=== PATIENT | male | born 2000 | race Caucasian/White ===

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

== ENCOUNTER → 2021-08-05 18:41 | Outpatient (CLI) | payer OTHER, SELFPAY ==
[2021-08-05 20:56] LABS: Urine N gonorrhoeae NOT DETECTED
[2021-08-05 21:29] LABS: Urine Chlamydia NOT DETECTED
== END ==
PROVIDERS: Visit Provider Physician Assistant
DX: R30.0 Dysuria (principal)
CPT/HCPCS: 87086; 87491; 87591

== ENCOUNTER 2021-08-06 23:20 | Emergency (ER) | payer OTHER, SELFPAY ==
[2021-08-06 23:27] VITALS: BP 143/89; PULSE 112; RESP 16; TEMP 36.9; O2SAT 99; BMI 21.9
--- NOTE | 2021-08-06 23:39 | ED_ITS ---
HPI - General Adult General Chief complaint: Urogenital-Male Stated complaint: chest, back, and abdominal pain, nausea Time Seen by Provider: 08/06/21 23:21 Source: patient Mode of arrival: Ambulatory History of Present Illness HPI narrative: 21-year-ol gentleman with a history of ADD currently on dextroamphetamine b.i.d. presents with an interesting constellation of symptoms spine getting worse over the past 2 days. Initial symptoms included urethral burning, groin pain, increasing frequency and mild left back pain. He does not describe specific prostate pain. Was seen in the walk-in clinic diagnosed with a urinary tract infection but told that they wanted to wait for the urine test prior to treating with antibiotics. He also had chlamydia test that is negative. He describes no penile discharge. Today he was noticing pelvic floor cramping and pain and some difficulty voiding. An hour prior to arrival he noted some chest pain shortness of breath mild nausea and felt that his heart was beating irregularly and faster than would be expected for a resting heart rate. He also notes random weird musculoskeletal pains intermittently all day. He describes no fevers or chills, no nausea vomiting or diarrhea. No headaches. Related Data Home Medications Medication Instructions Recorded Confirmed dextroamphetamine-amphetamine ER 20 mg PO DAILY 08/05/21 08/05/21 20 mg 24hr capsule,extend release (Adderall XR) Previous Rx's Medication Instructions Recorded albuterol sulfate 90 mcg/actuation 2 puff INHALATION Q4-6H PRN #8 gram 09/06/19 aerosol inhaler inhalational spacing device #1 each 09/06/19 (Flexichamber) Allergies Allergy/AdvReac Type Severity Reaction Status Date / Time No Known Drug Allergies Allergy Verified 08/05/21 18:19 Review of Systems Review of Systems Narrative: Remainder of complete review of systems is otherwise unremarkable except for that included in the HPI. Patient History Social History Smoking Status: Current some day smoker Smoking Status: Current some day smoker Substance Use Type: does not use Exam Narrative Exam Narrative: General: Healthy appearing, in no acute distress. Able to give a complete and coherent history. Well-nourished well-developed HEENT: Moist mucous membranes, normal sclera with reactive pupils, Neck: No JVD, supple Respiratory: Lungs are clear to auscultation, no wheezing no rales no rhonchi. Full and symmetrical air movement Cardiac: Regular rate and rhythm no murmurs no bruits Abdomen: Soft, nontender, good bowel tones, no flank pain Skin: Warm and dry, no rashes Neurologic: Grossly neurologically intact with no obvious asymmetries or abnormalities Extremities: No trauma, well perfused Psych: Cooperative, appropriate insight and affect Genitals: Normal external genitalia. No inguinal adenopathy. No testicular tenderness or fullness. Some minor tenderness at the base of the penis more associated with his urethra without significant perineal body tenderness. Prostate exam was done in the walk-in clinic and was described as normal and is not repeated today. Initial Vital Signs Initial Vital Signs: Vital Signs Temperature 98.5 F 08/06/21 23:27 Pulse Rate 112 H 08/06/21 23:27 Respiratory Rate 16 08/06/21 23:27 Blood Pressure 143/89 H 08/06/21 23:27 Pulse Oximetry 99 08/06/21 23:27 Course Orders Ordered: ED Orders 08/06/21 23:25 Complete Blood Count AUTO DIFF Stat Comprehensive Metabolic Panel Stat 08/06/21 23:43 COVID19 -Nasal swab/Pre-Proc Stat 08/07/21 01:15 Urinalysis and Microscopic Stat Discontinued Medications Sodium Chloride (Normal Saline 0.9%) 1,000 mls @ 1,000 mls/hr IV BOLUS ONE Stop: 08/07/21 00:48 Last Infusion: 08/07/21 00:58 Dose: 0 mls/hr Documented by: Admin: 08/07/21 00:05 Dose: 1,000 mls/hr Documented by: AIDA Ketorolac Tromethamine (Ketorolac 30 Mg/Ml Vial) 15 mg IV NOW ONE Stop: 08/06/21 23:50 Last Admin: 08/07/21 00:05 Dose: 15 mg Documented by: AIDA Vital Signs Vital signs: Vital Signs - 8 hr 08/06/21 23:27 08/07/21 00:59 08/07/21 01:00 Temperature 98.5 F Pulse Rate 112 H 71 73 Respiratory Rate 16 20 20 Blood Pressure 143/89 H 120/71 Pulse Oximetry 99 100 100 08/07/21 01:30 Temperature Pulse Rate 68 Respiratory Rate 16 Blood Pressure 103/65 Pulse Oximetry 100 Medical Decision Making Lab Data Result diagrams: 08/06/21 23:25 08/06/21 23:25 Labs: Lab Results 08/06/21 08/06/21 08/06/21 Range/Units 23:25 23:25 23:43 WBC 10.0 (4.5-11.0) X10^3/uL RBC 5.27 (4.5-5.9) X10^6/uL Hgb 16.0 (13.5-17.5) g/dL Hct 46.9 (41-53) % MCV 89.1 (80-100) fL MCH 30.4 (26-34) PG MCHC 34.1 (30-36) % RDW 13.4 (11.6-14.8) % Plt Count 227 (150-400) X10^3/uL Neut % (Auto) 45.9 L (50-75) % Lymph % (Auto) 44.2 H (25-40) % [place] % (Auto) 7.5 (3-14) % Eos % (Auto) 1.9 L (2-4) % Baso % (Auto) 0.5 (0-2) % Neut # (Auto) 4600 (6698-9489) /uL Lymph # (Auto) 4400 (2690-3349) /uL [place] # (Auto) 800 (0-900) /uL Eos # (Auto) 200 (0-450) /uL Baso # (Auto) 0 (0-100) /uL Sodium 142 (137-145) mmol/L Potassium 3.1 L (3.4-5.1) mmol/L Chloride 105 (98-107) mmol/L Carbon Dioxide 28 (22-32) mmol/L BUN 13 (9-20) mg/dL Creatinine 0.89 (0.66-1.25) mg/dL Estimated GFR > 60.0 (>60) mL/min BUN/Creatinine Ratio 14.6 (6-22) Glucose 113 H (70-100) mg/dL Calcium 9.7 (8.4-10.2) mg/dL Total Bilirubin 1.3 (0.2-1.3) mg/dL AST 21 (17-59) IU/L ALT 16 (<50) IU/L Alkaline Phosphatase 38 (38-126) U/L Total Protein 7.8 (6.3-8.2) g/dL Albumin 4.8 (3.5-5.0) g/dL Globulin 3.0 (1.7-4.1) g/dL Albumin/Globulin Ratio 1.6 (1.0-2.8) Urine Color Urine Appearance Urine pH (4.5-8.0) Ur Specific [place] (1.000-1.035) Urine Protein (Negative) Urine Glucose (UA) (Negative) g/dL Urine Ketones (NEGATIVE) Urine Occult Blood (Negative) Urine Nitrate (Negative) Urine Bilirubin (NEGATIVE) Urine Urobilinogen (0.2) E.U./dL Ur Leukocyte Esterase (NEGATIVE) Urine RBC (0-5/HPF) Urine WBC (0-5/HPF) Urine Bacteria (None) Ur Culture Indicated? Micro UA Comment SARS-CoV-2 (PCR) Negative (Negative) 08/07/21 Range/Units 01:15 WBC (4.5-11.0) X10^3/uL RBC (4.5-5.9) X10^6/uL Hgb (13.5-17.5) g/dL Hct (41-53) % MCV (80-100) fL MCH (26-34) PG MCHC (30-36) % RDW (11.6-14.8) % Plt Count (150-400) X10^3/uL Neut % (Auto) (50-75) % Lymph % (Auto) (25-40) % [place] % (Auto) (3-14) % Eos % (Auto) (2-4) % Baso % (Auto) (0-2) % Neut # (Auto) (0361-5345) /uL Lymph # (Auto) (3174-9059) /uL [place] # (Auto) (0-900) /uL Eos # (Auto) (0-450) /uL Baso # (Auto) (0-100) /uL Sodium (137-145) mmol/L Potassium (3.4-5.1) mmol/L Chloride (98-107) mmol/L Carbon Dioxide (22-32) mmol/L BUN (9-20) mg/dL Creatinine (0.66-1.25) mg/dL Estimated GFR (>60) mL/min BUN/Creatinine Ratio (6-22) Glucose (70-100) mg/dL Calcium (8.4-10.2) mg/dL Total Bilirubin (0.2-1.3) mg/dL AST (17-59) IU/L ALT (<50) IU/L Alkaline Phosphatase (38-126) U/L Total Protein (6.3-8.2) g/dL Albumin (3.5-5.0) g/dL Globulin (1.7-4.1) g/dL Albumin/Globulin Ratio (1.0-2.8) Urine Color Yellow Urine Appearance Clear Urine pH 6.0 (4.5-8.0) Ur Specific [place] 1.010 (1.000-1.035) Urine Protein Negative (Negative) Urine Glucose (UA) Negative (Negative) g/dL Urine Ketones Negative (NEGATIVE) Urine Occult Blood Negative (Negative) Urine Nitrate Negative (Negative) Urine Bilirubin Negative (NEGATIVE) Urine Urobilinogen 0.2 (0.2) E.U./dL Ur Leukocyte Esterase Negative (NEGATIVE) Urine RBC None seen (0-5/HPF) Urine WBC None seen (0-5/HPF) Urine Bacteria None seen (None) Ur Culture Indicated? Cult not indicated Micro UA Comment Microscopic normal SARS-CoV-2 (PCR) (Negative) Urine Dip Bedside Urine Glucose Negative Bedside Urine Bilirubin - Negative Bedside Urine Ketone - Negative Urine Specific [place] 1.015 Bedside Urine Occult Blood - Negative Bedside Urine pH 6.0 Bedside Urine Protein - Negative Bedside Urine Nitrite - Negative Bedside Urine Leukocytes - Negative Esterase Point of care testing: Urine Dip Bedside Urine Glucose Negative Bedside Urine Bilirubin - Negative Bedside Urine Ketone - Negative Urine Specific [place] 1.015 Bedside Urine Occult Blood - Negative Bedside Urine pH 6.0 Bedside Urine Protein - Negative Bedside Urine Nitrite - Negative Bedside Urine Leukocytes - Negative Esterase [facility] Narrative Medical decision making narrative: 21-year-old otherwise healthy young man comes in complaining of pelvic floor spasm, dysuria, urinary frequency and pain in the bottom of his feet also associated with pelvic floor spasm this evening he noted significant pain in his chest. Workup today was entirely unremarkable. I suspect that the chest pain is more related to anxiety or musculoskeletal issues than any significant pathology. No evidence of pneumonia, pneumothorax, acute coronary syndrome, gastritis. With pelvic pain the differential needs to be widened a bit as his urinalysis is completely normal, urine from yesterday is showing no growth on the preliminary culture and gonorrhea and chlamydia testing done yesterday are equally normal. Possibility of pudendal nerve injury, interstitial cystitis, perhaps some type of low spinal cord abnormality are all entertained but certainly seem far less likely in this otherwise healthy 21-year-old male. Had a long discussion regarding the negative findings today possibility that might be causing his pain and recommendation that with urology and position. At this point there are no life-threatening issues no evidence of infection and he is safe for home discharge. Questions were answered. Discharge Plan Departure Patient Disposition: Home Clinical Impression: Acute pelvic pain Activity Restrictions/Additional Instructions: Thank you for coming in today Your urinalysis was completely normal this evening. Gonorrhea and chlamydia test was done yesterday at urgent care, that was also normal. Your blood work was equally reassuring and does not suggest any significant infection. You have an interesting constellation of symptoms. At this time, the most common reasons for your symptoms including bladder infection, sexually transmitted infection, epididymitis or prostatitis do not seem to be present. The possibility of pudendal nerve injury or interstitial cystitis is entertained. These diagnoses definitely need a urologist for definitive diagnosis, care and treatment Using 400 mg of ibuprofen (2 [id number] pills) and 1 Tylenol every 6 hours can be very helpful in controlling pain. Please contact our Urology Clinic at [phone] to schedule an appointment. I wish you the best Prescriptions: No Action albuterol sulfate 90 mcg/actuation HFA aerosol inhaler 2 puff INHALATION Q4-6H PRN (Reason: shortness of breath or wheezing) Qty: 8 0RF (DME) Flexichamber Spacer See Rx Instructions .ROUTE .MEDSUPPLY Qty: 1 0RF Rx Instructions: As directed dextroamphetamine-amphetamine [Adderall XR] 20 mg capsule,extended release 24hr 20 mg PO DAILY 0RF Referrals: Miscellaneous,Doctor, MD [Primary Care Provider] -
[2021-08-06 23:58] LABS: Add Manual Diff / Slide Review NO; Basophils Absolute Auto 0 /uL (0-100); Basophils Percent Auto 0.5 % (0-2); Eosinophils Absolute Auto 200 /uL (0-450); Eosinophils Percent Auto 1.9 % (2-4); Hematocrit 46.9 % (41-53); Lymphocytes Absolute Auto 4400 /uL (1100-4500); Lymphocytes Percent Auto 44.2 % (25-40); Mean Corpuscular HGB Conc 34.1 % (30-36); Mean Corpuscular Hemoglobin 30.4 PG (26-34); Mean Corpuscular Volume 89.1 fL (80-100); Monocytes Absolute Auto 800 /uL (0-900); Monocytes Percent Auto 7.5 % (3-14); Neutrophils Absolute Auto 4600 /uL (1500-7000); Neutrophils Percent Auto 45.9 % (50-75); Platelet Count 227 X10^3/uL (150-400); Red Blood Cell Count 5.27 X10^6/uL (4.5-5.9); Red Cell Distribution Width 13.4 % (11.6-14.8)
[2021-08-07 00:02] LABS: COVID19 -Nasal RAPID Negative (Negative)
[2021-08-07 00:02] LABS: Alanine Aminotransferase 16 IU/L (<50); Albumin 4.8 g/dL (3.5-5.0); Albumin Globulin Ratio 1.6 (1.0-2.8); Alkaline Phosphatase 38 U/L (38-126); Aspartate Aminotransferase 21 IU/L (17-59); BUN Creatinine Ratio 14.6 (6-22); Bilirubin Total 1.3 mg/dL (0.2-1.3); Blood Urea Nitrogen 13 mg/dL (9-20); Calcium 9.7 mg/dL (8.4-10.2); Carbon Dioxide 28 mmol/L (22-32); Chloride 105 mmol/L (98-107); Estimated Glomerular Filt Rate > 60.0 mL/min (>60); Glucose 113 mg/dL (70-100); HEMOLYSIS 16 (0-50); Potassium 3.1 mmol/L (3.4-5.1); Sodium 142 mmol/L (137-145); Total Protein 7.8 g/dL (6.3-8.2)
[2021-08-07] MEDS: SODIUM CHLORIDE 0.9% 1,000 ML 1000 ML IV (00:05)
[2021-08-07] MEDS: KETOROLAC 30 MG/ML VIAL 15 MG IV (00:05)
[2021-08-07 00:59] VITALS: PULSE 71; RESP 20; O2SAT 100
[2021-08-07 01:00] VITALS: BP 120/71; PULSE 73; RESP 20; O2SAT 100
[2021-08-07 01:23] LABS: Appearance Urine UA CLEAR; Bilirubin Urine UA NEGATIVE (NEGATIVE); Color Urine UA YELLOW; Glucose Urine UA NEGATIVE (Negative); Ketones Urine UA NEGATIVE (NEGATIVE); Leukocyte Esterase Urine UA NEGATIVE (NEGATIVE); Nitrite Urine UA NEGATIVE (Negative); Occult Blood Urine UA NEGATIVE (Negative); Protein Urine UA NEGATIVE (Negative); Urobilinogen Urine UA 0.2 E.U./dL (0.2)
[2021-08-07 01:27] LABS: Bacteria Urine None Seen; Culture Indicated Urine Cult Not Indicated; RBC Urine None Seen (0-5/HPF); Urine Comments Microscopic Normal; WBC Urine None Seen (0-5/HPF)
[2021-08-07 01:30] VITALS: BP 103/65; PULSE 68; RESP 16; O2SAT 100
[2021-08-07 02:00] VITALS: BP 106/67; PULSE 62; RESP 13; O2SAT 100
[2021-08-07 02:30] VITALS: BP 107/67; PULSE 65; RESP 16; O2SAT 98
== END 2021-08-07 02:43 | disposition home or self-care (01) ==
PROVIDERS: Emergency Provider Emergency Medicine
DX: R10.2 Pelvic and perineal pain (principal); R07.9 Chest pain, unspecified; R30.0 Dysuria; R35.0 Frequency of micturition; Z20.822 Contact with and (suspected) exposure to COVID-19
CPT/HCPCS: 36415; 80053; 81001; 81003; 85025; 87635; 93005; 93010; 96361; 96374; 99284; C9803; J1885

== ENCOUNTER → 2022-08-12 15:42 | Outpatient (CLI) | payer OTHER, SELFPAY | PROVIDERS: Visit Provider Registered Nurse | DX: J02.9 Acute pharyngitis, unspecified (principal) | CPT/HCPCS: 87070 ==

== ENCOUNTER → 2024-05-19 16:11 | Outpatient (CLI) | payer OTHER, SELFPAY ==
--- NOTE | 2024-05-19 16:12 | DI.MRI.S_ITS ---
PROCEDURE: MR HEAD/BRAIN WO CON INDICATIONS: LEFT SIDED HEADACHE TECHNIQUE: Noncontrast axial T1 spin echo, axial T2 fast spin echo, sagittal and axial FLAIR, coronal T2 fast spin echo, axial gradient echo, axial diffusion and ADC through the brain. COMPARISON: None. FINDINGS: CSF Spaces: Basal cisterns are patent. No extra-axial fluid collections. Ventricles are normal in size and shape. Brain: No intracranial masses or hemorrhage. [place]/white matter interface is normal. Brainstem appears normal. Diffusion-weighted sequence is unremarkable without evidence of acute infarct. Normal intravascular flow voids are present. Skull and face: Calvarium has normal marrow signal. Orbits appear normal. Sinuses: Sinuses and mastoids are clear. IMPRESSION: Normal MRI of the brain Approved by: Vickey Henning M.D. on 05/20/2024 at 11:07
== END ==
LOC: MRI 16:12
PROVIDERS: PCP Family Medicine; Referring Provider Family Medicine; Visit Provider Family Medicine
DX: R51.9 Headache, unspecified (principal)
CPT/HCPCS: 70551